=== PATIENT | male | born 1975 | race Caucasian/White ===

== ENCOUNTER → 2017-12-07 | Outpatient (CLI) | payer OTHER | LOC: FIMAGING 07:27 | PROVIDERS: ATTEND Family Medicine | DX: K76.0 Fatty (change of) liver, not elsewhere classified (principal); K83.8 Other specified diseases of biliary tract; K86.89 Other specified diseases of pancreas; E78.5 Hyperlipidemia, unspecified ==

== ENCOUNTER 2018-01-11 09:43 | Day surgery (SDC) | payer OTHER ==
[2018-01-11] MEDS ORDERED: BENZOCAINE UNIT DOSE SPRAY HURRICAINE MM ONE (09:48)
[2018-01-11] MEDS ORDERED: fentaNYL 100 MCG/2 ML INJ IVP ONE (09:48)
[2018-01-11] MEDS ORDERED: NS 500 ML IV ONE (09:48)
[2018-01-11] MEDS ORDERED: MIDAZOLAM 2 MG/2 ML VIAL IVP ONE (09:48)
[2018-01-11] MEDS ORDERED: fentaNYL 100 MCG/2 ML INJ ONE (10:16)
[2018-01-11] MEDS ORDERED: MIDAZOLAM 2 MG/2 ML VIAL ONE (10:16)
--- NOTE | 2018-01-11 10:38 | PDPROPOC ---
Sedation Plan of Care Sedation Plan of Care: vital signs stable, mental status noted, patient educated of risks, benefits, alternatives, patient can tolerate sedation ASA Classification: ASA 1 Planned drugs: fentanyl, midazolam Mallampati Score: Class 1 Mallampati Reference Image: Patient passed 3-3-2 rule?: Yes
--- NOTE | 2018-01-11 10:38 | PDHPUP ---
History & Physical Update H&P update statement: This history and physical update is based on an assessment of the patient which was completed after admission or registration (within 24 hours), but prior to the surgery/procedure. H&P update: H&P reviewed & patient examined, no change in patient's condition since H&P completed
--- NOTE | 2018-01-19 12:06 | ECHO ---
[email or web address] [id number] Main: [phone] Fax: Transthoracic Echocardiogram Name: ERICA JEFFERSON MR#: [id number] Study Date: 01/11/2018 Study Time: 10:25 AM Date of : 1975 Age: 42 year(s) Height: ( ) Weight: ( ) BSA: Gender: Male Examination: DEMETRIUS Indication: Eval Aortic Valve Image Quality: Contrast: Requested by: Harris Montiel BP: / Heart Rate: Rhythm: Indication: Eval Aortic Valve Procedure Staff Crew Foreman: Aston Mandujano RDCS Reading Physician: Harris Montiel MD Requesting Provider: Conclusions: Bicuspid aortic valve with mild aortic regurgitation. Normal LV systolic function. Normal aortic root caliber. Measurements: Chambers Valvular Assessment AV/MV Valvular Assessment TV/PV Normal Normal Normal Name Value Range Name Value Range Name Value Range Continued Measurements: Findings: Left Ventricle: Normal global systolic LV function. Right Ventricle: Normal RV function. Left Atrium: An agitated saline study was performed and was negative for intracardiac shunting. Mitral Valve: The mitral valve is normal in appearance and function. There is no mitral valve regurgitation. Aortic Valve: Bicuspid aortic valve. Mild aortic valve regurgitation is present. Tricuspid Valve: The tricuspid valve is normal in appearance and function. Pulmonic Valve: The pulmonic valve is normal in appearance and function. Aorta: The aorta is normal. Pericardium: Patient: ERICA JEFFERSON Study Date: 01/11/2018 Page 1 of 2 10:25 AM No pericardial effusion. (No Signature Object) Patient: REICA JEFFERSON Study Date: 01/11/2018 Page 2 of 2 10:25 AM [id number]
== END 2018-01-11 12:43 | disposition home or self-care (01) ==
LOC: FCATH 09:43
PROVIDERS: ATTEND Internal Medicine Interventional Cardiology
PROC: B246ZZ4 Ultrasonography of Right and Left Heart, Transesophageal (ICD-10-PCS; principal; 2018-01-11)
DX: Q23.1 Congenital insufficiency of aortic valve (principal); R07.89 Other chest pain
CPT/HCPCS: J2250; J3010